=== PATIENT | female | born 1990 | race Caucasian/White ===

== ENCOUNTER 2016-10-01 14:14 | Outpatient (CLI) | payer MEDICAID | END 2016-10-01 14:15 | disposition home or self-care (01) | DX: M25.562 Pain in left knee (principal) ==

== ENCOUNTER 2018-09-12 08:00 | Outpatient (CLI) | payer MEDICAID, OTHER ==
[2018-09-12 13:24] LABS: T4 (THYROXINE) 7.63 ug/dL (6.09-12.23)
[2018-09-12 13:28] LABS: THYROID STIMULATING HORMONE 1.96 uIU/mL (0.34-5.60)
== END 2018-09-12 23:59 | disposition home or self-care (01) ==
LOC: LAB.N 08:00
PROVIDERS: ATTEND Nurse Practitioner Obstetrics & Gynecology
DX: E66.9 Obesity, unspecified (principal)
CPT/HCPCS: 36415; 84436; 84443

== ENCOUNTER 2018-11-15 06:54 | Day surgery (SDC) | payer OTHER ==
[2018-11-15] MEDS ORDERED: LACTATED RINGERS 1,000 ML IV ONE (07:22)
[2018-11-15 07:25] LABS: HCG UR QUAL NEGATIVE
--- NOTE | 2018-11-15 07:37 | ANESTHESIA ---
Pre-Anesthesia VS, & Labs - Diagnosis DENISA, pelvic pain - Procedure Leep, EUA Vital Signs: Temp Pulse Resp BP Pulse Ox 36.5 C 82 15 115/84 H 97 11/15/18 07:08 11/15/18 07:08 11/15/18 07:08 11/15/18 07:08 11/15/18 07:08 Height 5 ft 8 in Weight (kg) 103.7 kg - NPO >8 hours - Is Patient ?: No - Lab Results Lab results reviewed: No Home Medications and Allergies Home Medications: Ambulatory Orders RX: Folic Acid 1 mg PO DAILY 11/13/18 Folic Acid 1 mg PO DAILY 11/13/18 Allergies/Adverse Reactions: Allergies Allergy/AdvReac Type Severity Reaction Status Date / Time amoxicillin Allergy Rash Verified 11/15/18 07:19 sumatriptan Allergy heavy Verified 11/15/18 07:19 feelin, couldn't move neck Anes History & Medical History - Anesthetic History Anesthesia Complications: reports: No previous complications Family history of Anesthesia Complications: Denies Family history of Malignant Hyperthermia: Denies - Medical History Cardiovascular: reports: None Pulmonary: reports: None Gastrointestinal: reports: GERD Urinary: reports: None Musculoskeletal: reports: None Endocrine/Autoimmune: reports: None Skin: reports: None - Surgical History Eyes Ears Nose Throat (EENT): Tonsil/Adenoidectomy Gynecologic: Other Orthopedic: ACL reconstruction Plan Anesthesia Type: General Consent for Procedure(s) Verified and Reviewed: Yes Code Status: Attempt Resuscitation ASA classification: 2-Mild systemic disease Is this case an emergency?: No
--- NOTE | 2018-11-15 08:11 | ANESTHESIA ---
Pre-Anesthesia VS, & Labs - Diagnosis benjamin 2,3on biopsy - Procedure leep under anesthesia Vital Signs: Temp Pulse Resp BP Pulse Ox 36.5 C 82 15 115/84 H 97 11/15/18 07:08 11/15/18 07:08 11/15/18 07:08 11/15/18 07:08 11/15/18 07:08 Height 5 ft 8 in Weight (kg) 103.7 kg - NPO >8 hours - Is Patient ?: No - Lab Results Lab results reviewed: Yes Home Medications and Allergies Home Medications: Ambulatory Orders Folic Acid 1 mg PO DAILY 11/13/18 Folic Acid 1 mg PO DAILY 11/13/18 Allergies/Adverse Reactions: Allergies Allergy/AdvReac Type Severity Reaction Status Date / Time amoxicillin Allergy Rash Verified 11/15/18 07:19 sumatriptan Allergy heavy Verified 11/15/18 07:19 feelin, couldn't move neck Anes History & Medical History - Anesthetic History Anesthesia Complications: reports: No previous complications Family history of Anesthesia Complications: Denies Family history of Malignant Hyperthermia: Denies - Medical History Cardiovascular: reports: None Pulmonary: reports: None Gastrointestinal: reports: GERD Urinary: reports: None Musculoskeletal: reports: None Endocrine/Autoimmune: reports: None Skin: reports: None - Surgical History Eyes Ears Nose Throat (EENT): Tonsil/Adenoidectomy Gynecologic: Other Orthopedic: ACL reconstruction Exam General: Alert, Oriented x3, Cooperative, No acute distress Dental: WNL Mouth Openin Fingerbreadth Neck Mobility: Normal Mallampati classification: III Thyromental Distance: greater than 6 cm Respiratory: Lungs clear, Normal breath sounds, No respiratory distress, No accessory muscle use Cardiovascular: Regular rate, Normal S1, Normal S2, No murmurs Plan Anesthesia Type: General Consent for Procedure(s) Verified and Reviewed: Yes Code Status: Attempt Resuscitation ASA classification: 1-Healthy patient Is this case an emergency?: No
[2018-11-15] MEDS ORDERED: BUPIVACAINE 0.25% PF 30 ML VIAL ONE (08:16)
[2018-11-15] MEDS ORDERED: ONDANSETRON 4 MG/2 ML VIAL IVP ONE (08:40)
[2018-11-15] MEDS ORDERED: MIDAZOLAM 2 MG/2 ML VIAL IVP ONE (08:40)
[2018-11-15] MEDS ORDERED: DEXAMETHASONE 4 MG/ML VIAL IVP ONE (08:40)
[2018-11-15] MEDS ORDERED: KETOROLAC 30 MG/ML VIAL IVP ONE (08:40)
[2018-11-15] MEDS ORDERED: KETAMINE 500 MG/10 ML VIAL IVP ONE (08:40)
[2018-11-15] MEDS ORDERED: LIDOCAINE-MPF 2% 5 ML VIAL IM ONE (08:40)
[2018-11-15] MEDS ORDERED: ACETAMINOPHEN 1,000 MG/100 ML 100 ML IV ONE (08:40)
[2018-11-15] MEDS ORDERED: PROPOFOL 200 MG/20 ML VIAL IVP ONE (08:40)
[2018-11-15] MEDS ORDERED: BUPIVACAINE 0.25% PF 30 ML VIAL SUBQ ONE (08:52)
[2018-11-15] MEDS ORDERED: LIDOCAINE 1%-EPI 1:100000 20 ML MDV SUBQ ONE (08:52)
--- NOTE | 2018-11-15 09:18 | OPERATIVE REPORT ---
Operative Report - Other Other Information/Narrative: Preop: DENISA 3 Postop: same Procedure: LEEP and ECC Surg: Cait Assist: none Anesth: general EBL: 10 IVF: 400 UOP n/a Specimens: Leep x3, ECC Complications: none Disposition: PACU to home.
[2018-11-15] MEDS ORDERED: HYDROmorphone 0.5 MG/0.5 ML SYRINGE IVP PRN (09:19)
[2018-11-15] MEDS ORDERED: ONDANSETRON 4 MG/2 ML VIAL IVP PRN (09:19)
[2018-11-15] MEDS ORDERED: oxyCODONE 5 MG TABLET PO PRN (09:19)
[2018-11-15 10:18] VITALS: BP 118/66
--- NOTE | 2018-11-15 12:36 | OPERATIVE REPORT ---
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 POSTOPERATIVE DIAGNOSIS: Carcinoma in situ of the cervix. PROCEDURE PERFORMED: Loop electrosurgical excision procedure and endocervical curettage. SURGEON: Leeann Chavira MD MARITIME PILOT: None. ANESTHESIA: General. ESTIMATED BLOOD LOSS: 10 mL INTRAVENOUS FLUIDS: 400 mL URINE: Not applicable. COUNTS: Correct x2. COMPLICATIONS: None apparent. DISPOSITION: Stable to the recovery room. PROPHYLAXIS: SCDs to bilateral lower extremities. No antibiotics indicated. FINDINGS: Cervix with a large Lugol nonstaining area, which was completely excised with loop. SPECIMENS: LEEP ectocervix specimens x3. Endocervical curettage x1. COUNSELING: The patient was offered a procedure in the office, which she was unable to do due to [facility] anxiety and phobia. DESCRIPTION OF PROCEDURE: The patient was brought to the operating room where she was induced with g eneral anesthesia. She was placed in lithotomy in [facility]. A bimanual examination reveal ed axial cervix. She was prepped and draped in the usual sterile fashion. A speculum was placed. T his was coated and attached to suction. A single-tooth tenaculum was applied to the anterior lip of the cervix out of the way of the projected excision. The cervix was painted with strong Lugol's and the Lugol's nonstaining area was clearly visualized. The proper sized loop was selected and the exci nicol was performed on the right side, followed by the left side, followed by wedge at 12 o'clock. An endocervical curettage was then obtained. The LEEP bed was then cauterized without difficulties. G ood hemostasis was achieved. The tenaculum was removed. Monsel's solution was applied to the LEEP b ed. The blood was washed from her body. She was returned to the supine position prior to waking. TD: 11/15/2018 09:43
== END 2018-11-15 06:55 | disposition home or self-care (01) ==
LOC: SDS 06:54
PROVIDERS: ATTEND Obstetrics & Gynecology
PROC: 0UBC7ZX Excision of Cervix, Via Natural or Artificial Opening, Diagnostic (ICD-10-PCS; principal; 2018-11-15 08:30)
DX: D06.9 Carcinoma in situ of cervix, unspecified (principal); F41.8 Other specified anxiety disorders; F40.232 Fear of other medical care; E66.9 Obesity, unspecified; Z68.35 Body mass index [BMI] 35.0-35.9, adult; Z87.891 Personal history of nicotine dependence
CPT/HCPCS: 57522; 81025; J0131; J7120